=== PATIENT | male | born 1980 | race African-American/Black ===

== ENCOUNTER → 2025-09-21 | Emergency (ER) | payer BC ==
[~2025-09-21] VITALS: Ht 167.6 cm; Wt 116.1 kg
[~2025-09-21] MED LIST: 0.9 % SODIUM CHLORIDE 1,000 ML IV ONE; IMURAN50 MG PO; LIALDA1.2 GM PO; METHYLPREDNISOLONE SOD SUCC 125 MG VIAL IV ONE; NASAL MIST126 ML; OMEPRAZOLE-BIC1 EAC1 PO
[2025-09-21 05:50] VITALS: BP 123/80; O2SAT 100
[2025-09-21 09:02] LABS: BASO % 0.4 % (0.1-1.2); EOS # 0.08 (0.04-0.54); EOS % 1.6 % (0.7-7.0); LYMPH # 1.55 (1.18-3.74); LYMPH % 30.1 % (19.3-53.1); MEAN PLATELET VOLUME 10.20 fl (9.4-12.4); MONO # 0.35 (0.24-0.82); MONO % 6.8 % (4.7-12.5); NEUT # 3.12 (1.56-6.13); NEUT % 60.5 % (34.0-71.1); RED CELL DISTRIBUTION WIDTH 12.9 % (11.6-14.4)
[2025-09-21 09:06] LABS: ALT/SGPT 56.0 U/L (12-78); AST/SGOT 31.0 U/L (15-37); BILIRUBIN TOTAL 0.38 mg/dL (0.3-1.2); BUN CREA RATIO 15.0 (7.0-25.0); CREATININE SERUM 1.05 mg/dL (0.70-1.30); GFR 77.09; GLOBULINA 4.1 G/DL (2.4-3.5); GLUCOSE FASTING 101.0 mg/dL (65-100); OSMOLALITY SERUM 284.0 MOSM/KG (275-295)
[2025-09-21 09:08] LABS: ERYTHROCYTE SEDIMENTATION RATE 24 mm/hr (0-15)
== END | disposition left against medical advice (07) ==
LOC: ER 05:39
PROVIDERS: General Practice
DX: K51.80 Other ulcerative colitis without complications (principal)
CPT/HCPCS: 36415; 96365; J3490; J7030